=== PATIENT | female | born 1990 | race Caucasian/White ===

== ENCOUNTER 2019-08-02 07:51 | Emergency (ER) | payer MEDICAID, OTHER ==
[~2019-08-02] VITALS: Ht 170.2 cm; Wt 90.7 kg
--- NOTE | 2019-08-02 08:16 | NUR ---
Patient discharged to home in stable condition. Written and verbal after care instructions given. Patient verbalizes understanding of instructions. Stressed follow up or return to ER for worsening s/s.
== END 2019-08-02 08:16 | disposition home or self-care (01) ==
LOC: ER 07:51
DX: M43.6 Torticollis (principal)
CPT/HCPCS: A4663